=== PATIENT | male | born 2000 | race Caucasian/White ===

== ENCOUNTER 2022-02-04 15:44 | Emergency (ER) | payer BC, SELFPAY ==
[2022-02-04 15:58] VITALS: BP 141/91; PULSE 127; RESP 16; TEMP 36.9; O2SAT 100
--- NOTE | 2022-02-04 16:48 | ED.CHESTPAIN ---
HPI - Chest Pain General Chief Complaint: Chest Pain Stated Complaint: CHEST PAIN Time Seen by Provider: 02/04/22 16:49 Source: patient Mode of arrival: ambulatory Limitations: no limitations History of Present Illness HPI narrative: 21-year-old male presented for complaint of left anterior chest irritation, onset 0700. Describes pain as tightness and burning, sharp with deep breaths, worse with moving his arm or turning his head. Better with rest. Endorses pain at rest is 4/10. Pain with movement is 6/10. Patient states about 3 weeks ago he had similar symptoms causing him to discontinue newly prescribed methylphenidate as prescribed for ADHD. He has not had this medication in 2 weeks. He has had 1 episode of chest irritation since discontinuing the medication. He endorses a decreased appetite today. He denies dizziness, cough, shortness of breath, wheezing, nausea, vomiting, fever or chills. History of anxiety, chronic migraines. Related Data Home Medications Medication Instructions Recorded Confirmed cyclobenzaprine 5 mg tablet 5 mg PO TID PRN Muscle Spasm 06/14/21 02/04/22 erenumab-aooe 140 mg/mL 140 mg subcut MONTHLY 06/14/21 02/04/22 subcutaneous auto-injector (Aimovig Autoinjector) zolmitriptan 5 mg tablet 5 mg PO ONCE 06/14/21 02/04/22 bupropion HCl 75 mg tablet 75 mg PO DAILY 02/04/22 02/04/22 hydroxyzine pamoate 25 mg capsule 25 mg PO DIRECTED 02/04/22 02/04/22 pantoprazole 40 mg tablet,delayed 40 mg PO DAILY 02/04/22 02/04/22 release Allergies Allergy/AdvReac Type Severity Reaction Status Date / Time Sulfa (Sulfonamide AdvReac Unknown n/a Verified 02/04/22 16:44 Antibiotics) Review of Systems Review of Systems: CONSTITUTIONAL: Denies body aches, fever, chills, or sweats. EYES: Denies visual changes, redness, or discharge. ENT: Denies rhinorrhea, congestion, sore throat, or otalgia. CARDIOVASCULAR: Reports chest pain, denies palpitations, or edema. RESPIRATORY: Denies cough or dyspnea. GASTROINTESTINAL: Denies abdominal pain, vomiting, or diarrhea. GENITOURINARY: Denies dysuria or hematuria. SKIN: Denies rash, itching, or wounds. MUSCULOSKELETAL: Denies back pain, joint pain, or myalgia. NEUROLOGIC: Denies headache, numbness, tingling, or weakness. All systems reviewed & are unremarkable except as noted in HPI and below PMFSH Past Medical History Medical History GISSELL positive (~03/2020) Anxiety Inflammatory arthritis Migraines Family History Family History Father Asthma Mother Thyroid disease Grandparent Asthma Diabetes mellitus Hypertension Heart disease Grandparent Hypertension Social History Social History Smoking status: Never smoker Alcohol intake: never Comments At time of signature, I have reviewed and agree with nursing past medical, surgical, social and family history unless otherwise noted. Please see nursing chart for further information. There is no relevant family history pertinent to the presenting complaint Exam Narrative: GENERAL: Well-appearing, well-nourished, and in no acute distress. HEAD: Normocephalic, atraumatic. EYES: EOMI. No redness or drainage. Conjunctivae normal. ENT: Mucous membranes pink and moist. No rhinorrhea. TMs normal bilaterally. Throat normal. Uvula midline. NECK: Normal AROM. Supple. No lymphadenopathy. CHEST: No respiratory distress. Clear to auscultation. HEART: Regular rate and rhythm. No murmur appreciated. Normal peripheral pulses. Left anterior chest and left sternal pain with palpation at rib 5; also reproducible when lifting left arm or turning head to either side. ABDOMEN: Soft, nondistended, normal active bowel sounds. Epigastric and bilateral upper abdominal tenderness with palpation EXTREMITIES: Normal range of motion. No edema.
[2022-02-04] MEDS: KETOROLAC (*BKC) 60 MG/2 ML VIAL IM (17:10)
[2022-02-04 18:09] VITALS: BP 134/87; PULSE 96; RESP 18; O2SAT 99
== END 2022-02-04 18:09 | disposition home or self-care (01) ==
PROVIDERS: Emergency Provider Nurse Practitioner Family; PCP Family Medicine
DX: R07.89 Other chest pain (principal); M13.80 Other specified arthritis, unspecified site; F41.9 Anxiety disorder, unspecified
CPT/HCPCS: 96372; 99213; G0463; J1885